=== PATIENT | female | born 1965 | race African-American/Black ===

== ENCOUNTER 2024-07-17 12:30 | Emergency (ER) | payer MEDICAID, SELFPAY ==
[2024-07-17] VITALS (14 sets, daily range): BP systolic 94–108; BP diastolic 59–78; PULSE 70–88; TEMP 37.3; O2SAT 88–99; BMI 50.3
--- NOTE | 2024-07-17 12:39 | ED_ITS ---
HPI HPI - General Adult General Chief complaint: Shortness of Breath/Dyspnea Time Seen by Provider: 07/17/24 12:33 Source: patient Mode of arrival: ambulance Limitations: no limitations History of Present Illness HPI narrative: 59-year-old female presents for 4-day history of a cough. It has been nonproductive. No hemoptysis or known fever. She is worried she has pneumonia, she had it 3 years ago. Related Data Previous Rx's ?Medication ?Instructions ?Recorded azithromycin 250 mg tablet See Rx Instructions PO .COM PLEX #6 07/17/24 (Zithromax Z-Giovanni) tabs benzonatate 100 mg capsule 100 mg PO TID PRN cough #20 caps 07/17/24 Allergies Allergy/AdvReac Type Severity Reaction Status Date / Time ibuprofen AdvReac Intermediate STOMACHACHE Verified 07/17/24 12:52 metronidazole (From Flagyl) AdvReac Mild stomachache Verified 07/17/24 12:40 Penicillins AdvReac Mild stomachache Verified 07/17/24 12:40 Review of Systems ROS Narrative A ten point review of systems is negative except as noted above. Exam Narrative Exam Narrative: Nurses note and vital signs reviewed and patient is not hypoxic. General: The patient appears well and in no apparent distress. Patient is resting comfortably on cart. Skin: Warm, dry, no pallor noted. There is no rash noted. Head: Normocephalic, atraumatic Eye: Normal conjunctiva, no drainage Ears, Nose, Mouth, and Throat: oral mucosa is moist. Nares patent. Cardiovascular: Regular Rate and Rhythm Respiratory: Patient is in no distress, no accessory muscle use, lungs are clear to auscultation, no wheezing, rales or rhonchi Back: non-tender GI: Nontender, soft Musculoskeletal: The patient has no evidence of calf tenderness, no pitting edema, symmetrical pulses noted bilaterally Neurological: A&O, normal speech Psychiatric: Cooperative Constitutional Vital Signs, click to edit/add: Last Vital Signs Temp 99.1 F 07/17/24 12:34 Pulse 82 07/17/24 12:34 Resp 31 H 07/17/24 12:34 BP 108/78 07/17/24 12:34 Pulse Ox 98 07/17/24 12:34 O2 Del Method Room Air 07/17/24 12:34 Course Vital Signs Vital signs: Vital Signs Temperature 99.1 F 07/17/24 12:34 Pulse Rate 82 07/17/24 12:34 Respiratory Rate 31 H 07/17/24 12:34 Blood Pressure 108/78 07/17/24 12:34 Pulse Oximetry 98 07/17/24 12:34 Oxygen Delivery Method Room Air 07/17/24 12:34 Temperature 99.1 F 07/17/24 12:34 Pulse Rate 82 07/17/24 12:34 Respiratory Rate 31 H 07/17/24 12:34 Blood Pressure 108/78 07/17/24 12:34 Pulse Oximetry 98 07/17/24 12:34 Oxygen Delivery Method Room Air 07/17/24 12:34 Medical Decision Making MDM Narrative Medical decision making narrative: Chest x-ray my interpretation shows no infiltrates. She is placed on Zithromax and Tessalon. Treatment diagnosis and follow-up were discussed with the patient. Differential Diagnosis Differential Diagnosis: Pneumonia, upper respiratory infection, COVID Lab Data Lab results reviewed: Yes I reviewed the patient's lab results Labs: Lab Results 07/17/24 Range/Units 13:30 SARS-CoV-2 Ag (CV2AG) Negative (NEGATIVE) Imaging Data Chest x-ray: My impression: No acute findings ECG Data Attestation: I personally reviewed and interpreted this ECG as follows: (EKG on my interpretation shows normal sinus rhythm with rate of 82 and no acute change) Discharge Plan Discharge Chief Complaint: Shortness of Breath/Dyspnea Clinical Impression: Upper respiratory infection Patient Disposition: Home, Self-Care Time of Disposition Decision: 14:51 Condition: Good Mode of Transportation: Private Vehicle Prescriptions / Home Meds: New azithromycin [Zithromax Z-Giovanni] 250 mg tablet See Rx Instructions .ROUTE .COMPLEX Qty: 6 0RF Rx Instructions: For 250 mg dose pack: take 500 mg today (day 1), then 250 mg for 4 days (days 2-5) benzonatate 100 mg capsule 100 mg PO TID PRN (Reason: cough) Qty: 20 0RF Print Language: Azerbaijani Instructions: Upper Respiratory Infection (ED) Referrals: Nuria Anand NP [Primary Care Provider] - 1 week
--- NOTE | 2024-07-17 12:39 | ECG_ITS ---
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 Measurements Intervals [place] Rate: 82 P: 61 GA: 154 QRS: 55 QRSD: 62 T: 50 QT: 358 QTc: 397 Interpretive Statements 1100 Sinus rhythm 2420 RSR (QR) in lead V1/V2, consistent with right ventricular conduction delay ST ELEV, PROBABLE NORMAL EARLY REPOL PATTERN 9130 borderline ECG No previous ECG available for comparison Electronically Signed On 07-17-2024 18:47:34 EDT by ELIZABETH GUZMAN M.D.
[2024-07-17 13:56] LABS: Internal Control Within Normal Limits; SARS-CoV-2 Ag NEGATIVE (NEGATIVE)
== END 2024-07-17 16:03 | disposition home or self-care (01) ==
PROVIDERS: Emergency Provider Emergency Medicine; PCP Nurse Practitioner Family
DX: J06.9 Acute upper respiratory infection, unspecified (principal); Z87.01 Personal history of pneumonia (recurrent)
CPT/HCPCS: 71045; 87811; 93005; 99285